=== PATIENT | male | born 1960 | race Caucasian/White ===

== ENCOUNTER 2020-04-13 05:25 | Emergency (ER) | payer OTHER, SELFPAY ==
--- NOTE | 2020-04-13 | ECG_ITS ---
Test Reason : CHEST PAIN Blood Pressure : / mmHG Vent. Rate : 067 BPM Atrial Rate : 067 BPM P-R Int : 156 ms QRS Dur : 090 ms QT Int : 382 ms P-R-T Axes : 022 052 056 degrees QTc Int : 403 ms Normal sinus rhythm Normal ECG When compared with ECG of 03-DEC-2017 12:42, No significant change was found Referred By: Generic ED Physician Electronically Signed By:YUSEF BRICE
--- NOTE | 2020-04-13 06:11 | XR_ITS ---
EXAMINATION: XR CHEST CLINICAL INFORMATION: Chest pain. COMPARISON: Chest 05/01/2018 TECHNIQUE: Frontal view of the chest was obtained. FINDINGS: The lungs are well-expanded and clear. Heart size and pulmonary vascularity is normal. There is mild spondylosis of dorsal spine. No lytic process seen. XR/XR chest 1V IMPRESSION: Unremarkable chest exam. Moderate spondylosis of dorsal spine.
[2020-04-13 06:29] LABS: Basophils Percent Auto 0.4 % (0-2); Eosinophils Absolute Auto 0.1 X10*3/uL (0.0-0.4); Eosinophils Percent Auto 1.1 % (0-4); Hematocrit 42.2 % (42-52); Hemoglobin 14.7 g/dl (14.0-18.0); Imm Gran Abs Auto 0.01 X10*3/uL (0.00-0.03); Imm Gran Pct Auto 0.1 % (0.0-0.4); Lymphocytes Absolute Auto 1.7 X10*3/uL (1.2-4.9); Lymphocytes Percent Auto 22.6 % (20-40); MANUAL DIFF FLAG NO; Mean Corpuscular HGB Conc 34.8 g/dl (31.0-36.0); Mean Corpuscular Hemoglobin 32.5 pg (27.0-33.0); Mean Corpuscular Volume 93.4 fL (80-98); Mean Platelet Volume 9.4 fL (9.4-12.4); Monocytes Absolute Auto 0.5 X10*3/uL (0.1-1.2); Monocytes Percent Auto 6.9 % (2-11); Neutrophils Absolute Auto 5.1 X10*3/uL (2.0-8.3); Neutrophils Percent Auto 68.9 % (45-73); Platelet Count 243 X10*3/uL (160-400); Red Blood Count 4.52 X10*6/uL (4.60-5.80); White Blood Count 7.4 X10*3/uL (4.8-10.8)
[2020-04-13 06:49] LABS: Anion Gap 11 (12-20); Blood Urea Nitrogen 12 mg/dL (9-16); Calcium 8.8 mg/dL (8.4-10.2); Carbon Dioxide 26 mmol/L (22-29); Chloride 107 mmol/L (96-108); Estimated Glomerular Filt Rate > 60; Glucose Random 173 mg/dL (60-115); Potassium 4.3 mmol/l (3.3-5.1); Sodium 140 mmol/L (135-145)
[2020-04-13 06:55] LABS: Troponin-I High Sensitivity < 3.5 ng/L (<3.5-35.0)
--- NOTE | 2020-04-13 07:27 | ED.CHESTPAIN ---
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, had a normal stress test 2 years ago, went for a walk yesterday and felt fine no complaints no CP/SOB MD complaint: chest heaviness Onset (ago): day(s) (3) Timing of current episode: episodic Prior episodes: No Onset: during rest Pain location: substernal Pain radiation: none Severity: mild Quality: heaviness Relieving factors: nothing Exacerbating factors: nothing Associated symptoms: dyspnea Treatment prior to arrival: none Related Data Allergies Allergy/AdvReac Type Severity Reaction Status Date / Time No Known Allergies Allergy Unverified 12/12/19 14:58 Review of Systems Review of Systems: Constitutional : No Weight loss, No Fever, No Chills ENT/Mouth : No sore throat, No Rhinorrhea Eyes: No Eye Pain, No Swelling Cardiovascular : pos Chest Pain, pos SOB, no Dyspnea on Exertion, No Orthopnea, No Edema, No Palpitations Respiratory : No Cough, No Sputum Gastrointestinal : no Nausea, No Vomiting, No Diarrhea, No abdominal Pain, No Hematochezia, No Melena Genitourinary : No Dysuria, No Urinary Frequency Musculoskeletal : No joint pain, No Myalgias, No Joint Swelling Skin : No Skin Lesions, No rash Neuro : No Weakness, No Numbness, No Dizziness, No Headache Psych : No Anxiety/Panic, No Depression Heme/Lymph: No Bruising, No Lymphadenopathy Endocrine : No Polyuria, No Polydipsia All other systems reviewed and are negative [facility] Past Medical History Attestation statement: The following information was validated with the patient. Medical History Bursitis Social History Social History (Updated 04/13/20 @ 07:38 by Vandana Dyson DO) Smoking Status: Former smoker Advance Directives: No Advance Directives Information Provided: No Physical Exam Vital Signs: Vital Signs: Last Vital Signs Temp 97.9 F 04/13/20 09:09 Pulse 63 04/13/20 09:09 Resp 16 04/13/20 09:09 BP 122/63 04/13/20 09:09 Pulse Ox 98 04/13/20 09:09 Body Mass Index 29.7 Appearance: Alert. Oriented X3. No acute distress. Eyes: Pupils equal, round and reactive to light. ENT: Pharynx normal. Neck: Normal inspection. Neck supple. CVS: Normal heart rate and rhythm. Pulses normal. Chest: nontender Respiratory: No respiratory distress. Breath sounds normal. Abdomen: Soft and nontender. Skin: Skin warm and dry. Normal skin color. Normal skin turgor. Extremities: No lower extremity edema. No calf ttp distal pulses intact Neuro: Oriented X 3. No motor deficit. No sensory deficit. Course Course Course Narrative: R arm 105/58 L arm 110/61 - symmetric BPs no acute findings, troponin negative at this time x 2 stable for DC at this time MDM - Chest Pain MDM Narrative Medical decision making narrative: 59 yo male no sig PMH, normal stress 2 years ago, dad did have [place] at age 62, his Wells for PE is 0, he has no hypoxia/tachycardia/signs of DVT/nit is not pleuritic in nature, his pain is not related to exertion as he went for a walk yesterday and felt fine - his EKG is nonischemic, troponin flat with 3 days of symptoms, doubt dissection - he is comfortable as well as distal pulses are intact, will obtain COVID swab given exposures at work. His symptoms seem atypical for PE/ACS/dissection Lab Data Result diagrams: 04/13/20 06:24 04/13/20 06:23 Labs: Lab Results 04/13/20 04/13/20 04/13/20 Range/Units 06:23 06:23 06:24 WBC 7.4 (4.8-10.8) X10*3/uL RBC 4.52 L (4.60-5.80) X10*6/uL Hgb 14.7 (14.0-18.0) g/dl Hct 42.2 (42-52) % MCV 93.4 (80-98) fL MCH 32.5 (27.0-33.0) pg MCHC 34.8 (31.0-36.0) g/dl RDW 12.0 (11.0-16.0) % Plt Count 243 (160-400) X10*3/uL MPV 9.4 (9.4-12.4) fL Immature Gran % (Auto) 0.1 (0.0-0.4) % Neut % (Auto) 68.9 (45-73) % Lymph % (Auto) 22.6 (20-40) % [place] % (Auto) 6.9 (2-11) % Eos % (Auto) 1.1 (0-4) % Baso % (Auto) 0.4 (0-2) % Lymph # (Auto) 1.7 (1.2-4.9) X10*3/uL [place] # (Auto) 0.5 (0.1-1.2) X10*3/uL Eos # (Auto) 0.1 (0.0-0.4) X10*3/uL Baso # (Auto) 0.0 (0.0-0.2) X10*3/uL Abs Immat Gran (auto) 0.01 (0.00-0.03) X10*3/uL Absolute Neuts (auto) 5.1 (2.0-8.3) X10*3/uL Absolute Nucleated RBC 0.000 (0.0-0.012) X10*3/uL Nucleated RBC % (auto) 0.0 (0.0-0.2) /100WBC Hold Blue Top Sodium 140 (135-145) mmol/L Potassium 4.3 (3.3-5.1) mmol/l Chloride 107 (96-108) mmol/L Carbon Dioxide 26 (22-29) mmol/L Anion Gap 11 L (12-20) BUN 12 (9-16) mg/dL Creatinine 1.00 (0.5-1.4) mg/dL Estim Creat Clear Calc TNP Estimated GFR > 60 Random Glucose 173 H (60-115) mg/dL Calcium 8.8 (8.4-10.2) mg/dL Troponin I High Sens < 3.5 (<3.5-35.0) ng/L Coronavirus (PCR) (Negative) Influenza Type A (PCR) (Negative) Influenza Type B (PCR) (Negative) RSV RNA Qual (PCR) (Negative) 04/13/20 04/13/20 04/13/20 Range/Units 06:24 08:12 09:21 WBC (4.8-10.8) X10*3/uL RBC (4.60-5.80) X10*6/uL Hgb (14.0-18.0) g/dl Hct (42-52) % MCV (80-98) fL MCH (27.0-33.0) pg MCHC (31.0-36.0) g/dl RDW (11.0-16.0) % Plt Count (160-400) X10*3/uL MPV (9.4-12.4) fL Immature Gran % (Auto) (0.0-0.4) % Neut % (Auto) (45-73) % Lymph % (Auto) (20-40) % [place] % (Auto) (2-11) % Eos % (Auto) (0-4) % Baso % (Auto) (0-2) % Lymph # (Auto) (1.2-4.9) X10*3/uL [place] # (Auto) (0.1-1.2) X10*3/uL Eos # (Auto) (0.0-0.4) X10*3/uL Baso # (Auto) (0.0-0.2) X10*3/uL Abs Immat Gran (auto) (0.00-0.03) X10*3/uL Absolute Neuts (auto) (2.0-8.3) X10*3/uL Absolute Nucleated RBC (0.0-0.012) X10*3/uL Nucleated RBC % (auto) (0.0-0.2) /100WBC Hold Blue Top SEE NOTE Sodium (135-145) mmol/L Potassium (3.3-5.1) mmol/l Chloride (96-108) mmol/L Carbon Dioxide (22-29) mmol/L Anion Gap (12-20) BUN (9-16) mg/dL Creatinine (0.5-1.4) mg/dL Estim Creat Clear Calc Estimated GFR Random Glucose (60-115) mg/dL Calcium (8.4-10.2) mg/dL Troponin I High Sens < 3.5 (<3.5-35.0) ng/L Coronavirus (PCR) NEGATIVE (Negative) Influenza Type A (PCR) NEGATIVE (Negative) Influenza Type B (PCR) NEGATIVE (Negative) RSV RNA Qual (PCR) NEGATIVE (Negative) ECG Data ECG #1: Attestation: I personally reviewed and interpreted this ECG as follows: ECG interpretation date: 04/13/20 ECG interpretation time: 07:28 Interpretation: Rate: 67 Rhythm: NSR [place]: normal Normal P waves. Normal CAROLYN. Normal QRS complex. ST T wave : normal, no ROSEMARY qTC: normal prior studies: no acute ischemia The study has been interpreted contemporaneously by me. . Discharge Plan Discharge Clinical Impression: Chest pain Patient Disposition: Home, Self-Care Instructions: Chest Pain (ED) Additional Instructions: Your EKG, lab work, chest x-ray and covid test were all negative today Follow-up with your doctor within 5-7 days Referrals: Aamir Up MD [Primary Care Provider] - 2 days Stand Alone Forms: Work/School Release
[2020-04-13 07:54] VITALS: BP 107/54; PULSE 73; RESP 16; TEMP 36; O2SAT 97; BMI 29.7
[2020-04-13 09:07] LABS: Influenza A PCR NEGATIVE (Negative); Influenza B PCR NEGATIVE (Negative); Resp Syncy Virus RNA Qual PCR NEGATIVE (Negative); SARS COV2 PCR INHOUSE NEGATIVE (Negative)
[2020-04-13 09:09] VITALS: BP 122/63; PULSE 63; RESP 16; TEMP 36.6; O2SAT 98
[2020-04-13 09:56] LABS: Troponin-I High Sensitivity < 3.5 ng/L (<3.5-35.0)
== END 2020-04-13 10:48 | disposition home or self-care (01) ==
PROVIDERS: Emergency Provider Emergency Medicine; PCP Internal Medicine
DX: R07.9 Chest pain, unspecified (principal); Z20.822 Contact with and (suspected) exposure to COVID-19; Z87.891 Personal history of nicotine dependence
CPT/HCPCS: 0241U; 36415; 71045; 80048; 84484; 85025; 93005; 99283; 99284

== ENCOUNTER 2022-02-27 09:43 | Emergency (ER) | payer OTHER, SELFPAY ==
[2022-02-27 09:46] VITALS: BP 130/61; PULSE 81; RESP 16; TEMP 36.3; O2SAT 99
[2022-02-27 10:17] VITALS: BP 130/61; PULSE 81; RESP 16; TEMP 36.3; O2SAT 99; BMI 27.3
--- NOTE | 2022-02-27 10:43 | ED.GENADULT ---
HPI - General Adult General Chief complaint: Upper Respiratory Symptoms Stated complaint: Sinus infection Time Seen by Provider: 02/27/22 10:19 Source: patient Mode of arrival: ambulatory History of Present Illness HPI narrative: 61-year-old male with past medical history of prediabetes presents to ED for headache, runny nose aches, and chills. Patient states his grandson tested positive for influenza this past Monday. Patient denies any coughing, chest pain, shortness of breath, neck stiffness, photophobia, or rash. Related Data Allergies Allergy/AdvReac Type Severity Reaction Status Date / Time No Known Allergies Allergy Unverified 12/12/19 14:58 Review of Systems Review of Systems: Headache, runny nose, sinus pain Yes all other systems are reviewed and are negative [facility] Past Medical History Medical History Bursitis Social History Social History (Updated 04/13/20 @ 07:38 by Lyndsey Dyson DO) Advance Directives: No Advance Directives Information Provided: No Physical Exam ED Vital Signs: Vital Signs - 24 hr 02/27/22 09:46 02/27/22 10:17 Temperature 97.3 F 97.3 F Pulse Rate 81 81 Respiratory Rate 16 16 Blood Pressure 130/61 130/61 Pulse Oximetry 99 99 Oxygen Delivery Method Room Air Room Air BMI result Body Mass Index 27.3 Const General: cooperative, healthy appearing, comfortable, no acute distress, well developed and alert Orientation/consciousness: patient oriented x3 HENMT Head: Yes normal to inspection, Yes No palpable skull fracture present, Yes normocephalic, Yes atraumatic and No abrasion Ears: hearing grossly normal bilaterally, external ears normal, TM's normal bilaterally, TM normal on the left and EAC's normal Face and sinus: Yes sinus tenderness (maxillary) Eyes General: appearance normal, both eyes and all related structures Neck Neck: Yes normal visual inspection, Yes full ROM, Yes no lymphadenopathy, Yes no meningeal signs, Yes trachea midline, Yes supple, No anterior neck swelling and No tender Chest Chest palpation & inspection: normal inspection of the chest and normal palpation of entire chest wall Resp Effort & Inspection: normal respiratory effort and able to speak in complete sentences Auscultation: clear to auscultation bilaterally Cardio Jugular venous distension: no JVD Heart sounds: S1 normal heart sound present and S2 normal heart sound present GI Inspection: Yes normal to inspection and No abdominal wall ecchymosis Palpation (GI): Soft to palpation, not firm, nontender, no guarding and not rigid General: No CVA tenderness and Yes no CVA tenderness Back/Spine/Pelvis Back: no CVA tenderness, No CVA tenderness and No back tenderness Skin General skin exam: no rashes or lesions noted and elasticity normal Neuro General: patient oriented x3, gait normal and no meningeal signs Cranial nerves: Yes CN's II-XII intact bilaterally Extrem General: Yes normal to inspection and Yes full ROM Psych Appearance: grossly normal, well kempt and not disheveled Course Course Course Narrative: SARs swab sent. Patient well-appearing Reevaluation(s) Reevaluation #1: Patient positive for influenza. Patient states having symptoms since last Monday. Time: 12:27 Medical Decision Making MDM Narrative Medical decision making narrative: 61-year-old male with flu-like symptoms positive for influenza. Symptoms over 48 hours will not be given Tamiflu. Patient educated on supportive care and respiratory distress and told to return if he has them. Lab Data Labs: Lab Results 02/27/22 Range/Units 10:51 Influenza Type A (PCR) POSITIVE A (Negative) Influenza Type B (PCR) NEGATIVE (Negative) RSV RNA Qual (PCR) NEGATIVE (Negative) SARS-CoV-2 RNA (RT-PCR) NEGATIVE (Negative) Discharge Plan Discharge Clinical Impression: Influenza Patient Disposition: Home, Self-Care Instructions: Influenza (ED) Additional Instructions: You are positive for flu. Recommend oral hydration, rest, and Tylenol/Motrin for pain/fever relief. Return to the ED for any chest pain, shortness of breath, weakness, dizziness, or any other concerning symptoms. Please follow-up with your primary care provider. Stand Alone Forms: Work/School Release Interventions: ED Discharge Assessment Last Done: 02/27/22 12:32 Discharge Date/Time: 02/27/22 12:33 Print Language: Irish
[2022-02-27 11:47] LABS: Influenza A PCR POSITIVE (Negative); Influenza B PCR NEGATIVE (Negative); Resp Syncy Virus RNA Qual PCR NEGATIVE (Negative); SARS COV2 PCR INHOUSE NEGATIVE (Negative)
== END 2022-02-27 12:33 | disposition home or self-care (01) ==
PROVIDERS: Physician Assistant; Emergency Provider Emergency Medicine; PCP Internal Medicine
DX: J10.1 Influenza due to other identified influenza virus with other respiratory manifestations (principal); Z20.822 Contact with and (suspected) exposure to COVID-19
CPT/HCPCS: 0241U; 99283

== ENCOUNTER 2022-04-28 06:52 | Emergency (ER) | payer OTHER, SELFPAY ==
[2022-04-28 07:27] VITALS: BP 127/52; PULSE 74; RESP 16; TEMP 36.2; O2SAT 98; BMI 26.6
[2022-04-28 09:05] VITALS: BP 132/72; PULSE 69; RESP 18; TEMP 36.7; O2SAT 98
--- NOTE | 2022-04-28 09:07 | PC.NURSE ---
patient a&ox3, vss, pt c/o lower back pain which increases with ambulation after picking up golf balls at work yesterday, pt states he didnt take any medication at home this morning, yesterday he took aleve which didnt work.
--- NOTE | 2022-04-28 09:32 | ED.BACK ---
HPI - Back Pain/Injury General Chief Complaint: Back Pain/Injury <MURIEL Espinosa Last Filed: 04/28/22 09:57> Stated Complaint: back inj 04/27/22/ work inj <MURIEL Espinosa Last Filed: 04/28/22 09:57> Time Seen by Provider: 04/28/22 09:16 <MURIEL Espinosa Last Filed: 04/28/22 09:57> History of Present Illness HPI Narrative: Patient complains of low back pain after lifting a heavy object on his job yesterday, pain does not radiate there is no numbness weakness or tingling there is no loss of sensation no changes to bowel or bladder no incontinence no dysuria no burning with urination no frequency no fever no IV drug use no abdominal pain no chest <MURIEL Espinosa Last Filed: 04/28/22 09:57> Related Data Home Medications: Previous Rx's Medication Instructions Recorded acetaminophen 500 mg tablet 1,000 mg PO QID PRN pain #30 tabs 04/28/22 cyclobenzaprine 5 mg tablet 5 mg PO TID PRN muscle spasm #14 04/28/22 tabs ibuprofen 600 mg tablet 600 mg PO Q6H PRN pain #20 tabs 04/28/22 oxycodone 5 mg tablet 5 mg PO Q6H PRN pain #14 tabs 04/28/22 <MURIEL Espinosa - Last Filed: 04/28/22 09:57> Allergies/Adverse Reactions: Allergies Allergy/AdvReac Type Severity Reaction Status Date / Time No Known Allergies Allergy Verified 04/28/22 07:27 <MURIEL Espinosa - Last Filed: 04/28/22 09:57> [facility] Past Medical History Source: nursing notes reviewed <MURIEL Espinosa Last Filed: 04/28/22 09:57> Medical History: Medical History Bursitis <MURIEL Espinosa Last Filed: 04/28/22 09:57> Physical Exam Vital Signs: Vital Signs: Last Vital Signs Temp 98.0 F 04/28/22 09:05 Pulse 69 04/28/22 09:05 Resp 18 04/28/22 09:05 BP 132/72 04/28/22 09:05 Pulse Ox 98 04/28/22 09:05 O2 Del Method 04/28/22 09:05 BMI result Body Mass Index 26.6 <MURIEL Espinosa - Last Filed: 04/28/22 09:57> Vital Signs: Last Vital Signs Temp 98.0 F 04/28/22 09:05 Pulse 69 04/28/22 09:05 Resp 18 04/28/22 09:05 BP 132/72 04/28/22 09:05 Pulse Ox 98 04/28/22 09:05 O2 Del Method 04/28/22 09:05 BMI result Body Mass Index 26.6 <Laz Salas MD - Last Filed: 05/02/22 11:52> General appearance is no distress Head is normocephalic atraumatic Neck is supple Respiratory no distress Abdomen soft nontender The back had bilateral paraspinal soft tissue tenderness there is no midline tenderness, there was muscle spasm on both sides, skin of the back was normal Extremities full range of motion x4 Skin no rashes Neuro gait and balance are normal, motor is 5/5 x4 and sensation is intact and symmetrical in extremities <MURIEL Espinosa - Last Filed: 04/28/22 09:57> Course Course Course Narrative: Well-appearing person with pain in low back worse with movement relieved with being still, no neurologic deficit no change to bowel or bladder, injury happened at work so will follow with work [facility] and patient is discharged ambulating easily <MURIEL Espinosa - Last Filed: 04/28/22 09:57> Medical Decision Making Attestation Attending Attestation: I reviewed [employer]S OFFICER/PA/Resident note, assessment and plan. I agree with the documentation, assessment and plan unless otherwise stated. <Laz Salas MD - Last Filed: 05/02/22 11:52> Discharge Plan Discharge Clinical Impression: Strain of lumbar region <MURIEL Espinosa - Last Filed: 04/28/22 09:57> Patient Disposition: Home, Self-Care <MURIEL Espinosa - Last Filed: 04/28/22 09:57> Additional Instructions: you injured your back at work so follow with work connection for work related injury return any time if worse oxycodone narcotic and flexeril mmuscle relaxer are sedating mediciness so no driving for 6 hours after taking <MURIEL Espinosa Last Filed: 04/28/22 09:57> Prescriptions: New oxycodone 5 mg tablet 5 mg PO Q6H PRN (Reason: pain) Qty: 14 0RF Rx Instructions: Partial Fill upon patient request. ibuprofen 600 mg tablet 600 mg PO Q6H PRN (Reason: pain) Qty: 20 0RF acetaminophen 500 mg tablet 1,000 mg PO QID PRN (Reason: pain) Qty: 30 0RF cyclobenzaprine 5 mg tablet 5 mg PO TID PRN (Reason: muscle spasm) Qty: 14 0RF <MURIEL Espinosa - Last Filed: 04/28/22 09:57> Referrals: [facility] [Provider Group] (back injury at work) <MURIEL Espinosa - Last Filed: 04/28/22 09:57> Stand Alone Forms: Work/School Release <MURIEL Espinosa - Last Filed: 04/28/22 09:57> Interventions: ED Discharge Assessment Last Done: 04/28/22 09:53 <MURIEL Espinosa - Last Filed: 04/28/22 09:57> Discharge Date/Time: 04/28/22 09:54 <MURIEL Espinosa - Last Filed: 04/28/22 09:57>
== END 2022-04-28 09:54 | disposition home or self-care (01) ==
PROVIDERS: Emergency Provider Emergency Medicine; PCP Internal Medicine
DX: S39.012A Strain of muscle, fascia and tendon of lower back, initial encounter (principal); X50.0XXA Overexertion from strenuous movement or load, initial encounter; Y93.89 Activity, other specified; Y92.59 Other trade areas as the place of occurrence of the external cause; Y99.0 Civilian activity done for income or pay
CPT/HCPCS: 99283; 99284

== ENCOUNTER → 2022-05-02 09:57 | Outpatient (BNVA) | payer OTHER, SELFPAY | PROVIDERS: PCP Internal Medicine; Visit Provider Internal Medicine | DX: S39.012A Strain of muscle, fascia and tendon of lower back, initial encounter (principal); X50.0XXA Overexertion from strenuous movement or load, initial encounter | CPT/HCPCS: 99202 ==

== ENCOUNTER → 2022-05-09 13:22 | Outpatient (BNVA) | payer OTHER, SELFPAY | PROVIDERS: PCP Internal Medicine; Visit Provider Internal Medicine | DX: S39.012A Strain of muscle, fascia and tendon of lower back, initial encounter (principal); W50.0XXA Accidental hit or strike by another person, initial encounter | CPT/HCPCS: 99213 ==